=== PATIENT | female | born 1965 | race Caucasian/White ===

== ENCOUNTER → 2017-12-03 11:36 | Outpatient (CLI) | payer BC, SELFPAY ==
[2017-12-03 12:58] LABS: Add Manual Diff / Slide Review NO; Basophils Percent Auto 0.5 % (0-2); Eosinophils Percent Auto 1.1 % (2-4); Hematocrit 35.8 % (36-46); Hemoglobin 12.4 g/dL (12.0-16.0); Lymphocytes Percent Auto 30.2 % (25-40); Mean Corpuscular HGB Conc 34.6 % (30-36); Mean Corpuscular Hemoglobin 35.1 PG (26-34); Mean Corpuscular Volume 101.3 fL (80-100); Monocytes Percent Auto 8.5 % (3-14); Neutrophils Absolute Auto 2500 /uL (3000-5900); Neutrophils Percent Auto 59.7 % (50-75); Platelet Count 245 X10^3/uL (150-400); Red Blood Cell Count 3.54 X10^6/uL (4.0-5.2); Red Cell Distribution Width 14.1 % (11.6-14.8); White Blood Cell Count 4.2 X10^3/uL (4.5-11.0)
== END ==
PROVIDERS: PCP Allergy & Immunology; Visit Provider Allergy & Immunology
DX: J82 Pulmonary eosinophilia, not elsewhere classified (principal)
CPT/HCPCS: 36415; 82785; 85025

== ENCOUNTER → 2017-12-15 07:47 | Outpatient (CLI) | payer BC, SELFPAY ==
--- NOTE | 2017-12-15 | DI.MG.S_ITS ---
BILATERAL DIGITAL SCREENING MAMMOGRAM 3D/2D WITH CAD: 12/15/2017 CLINICAL: Routine screening. Comparison is made to exams dated: 11/27/2016 mammogram - [facility], 10/03/2015 mammogram, and 06/19/2014 mammogram - [facility]. The tissue of both breasts is heterogeneously dense. This may lower the sensitivity of mammography. Current study was also evaluated with a Computer Aided Detection (CAD) system. No significant masses, calcifications, or other findings are seen in either breast. There has been no significant interval change. IMPRESSION: NEGATIVE There is no mammographic evidence of malignancy. A 1 year screening mammogram is recommended. This exam was interpreted at Station ID: [id number]. NOTE: For mammograms, a report in lay terms will be sent to the patient. Approximately 15% of breast malignancies will not be visualized mammographically. In the management of a palpable breast mass, a negative mammogram must not discourage biopsy of a clinically suspicious lesion. Electronically Signed By: Antonio monterroso/jean:12/15/2017 10:32:35 copy to: WINIFRED BALTAZAR letter sent: Normal Exam ACR BI-RADS Category 1: Negative [id number]
== END ==
PROVIDERS: PCP Allergy & Immunology; Visit Provider Allergy & Immunology
DX: Z12.31 Encounter for screening mammogram for malignant neoplasm of breast (principal)
CPT/HCPCS: 77063; 77067

== ENCOUNTER → 2018-01-11 07:18 | Outpatient (CLI) | payer BC, SELFPAY ==
[2018-01-11 07:29] LABS: Bacteria Urine None Seen; RBC Urine None Seen (0-5/HPF); WBC Urine None Seen (0-5/HPF)
[2018-01-11 08:11] LABS: Add Manual Diff / Slide Review NO; Basophils Percent Auto 0.7 % (0-2); Eosinophils Percent Auto 1.3 % (2-4); Lymphocytes Percent Auto 32.5 % (25-40); Mean Corpuscular HGB Conc 34.2 % (30-36); Mean Corpuscular Volume 102.3 fL (80-100); Monocytes Percent Auto 9.8 % (3-14); Neutrophils Absolute Auto 2000 /uL (3000-5900); Neutrophils Percent Auto 55.7 % (50-75); Platelet Count 239 X10^3/uL (150-400); Red Blood Cell Count 3.71 X10^6/uL (4.0-5.2); Red Cell Distribution Width 13.7 % (11.6-14.8); White Blood Cell Count 3.6 X10^3/uL (4.5-11.0)
[2018-01-11 08:33] LABS: Erythrocyte Sedimentation Rate 18 MM/HR (0-20)
[2018-01-11 08:51] LABS: Alanine Aminotransferase 44 IU/L (9-52); Albumin 4.3 g/dL (3.5-5.0); Albumin Globulin Ratio 1.3 (1.0-2.8); Alkaline Phosphatase 61 U/L (38-126); Aspartate Aminotransferase 46 IU/L (14-36); BUN Creatinine Ratio 35.7 (6-22); Bilirubin Total 0.4 mg/dL (0.2-1.3); Blood Urea Nitrogen 25 mg/dL (7-17); C-Reactive Protein Quant 0.5 mg/dL (<1.0); Calcium 9.4 mg/dL (8.4-10.2); Carbon Dioxide 29 mmol/L (22-32); Chloride 104 mmol/L (98-107); Estimated Glomerular Filt Rate > 60.0 mL/min (>60); Globulin 3.2 g/dL (1.7-4.1); Glucose 119 mg/dL (70-100); HEMOLYSIS < 15 (0-50); Potassium 4.3 mmol/L (3.4-5.1); Sodium 143 mmol/L (137-145); Total Protein 7.5 g/dL (6.3-8.2)
[2018-01-11 12:11] LABS: Appearance Urine UA CLOUDY; Bilirubin Urine UA NEGATIVE (NEGATIVE); Color Urine UA YELLOW; Glucose Urine UA NEGATIVE (Normal); Ketones Urine UA NEGATIVE (NEGATIVE); Leukocyte Esterase Urine UA NEGATIVE (NEGATIVE); Nitrite Urine UA Negative (Negative); Occult Blood Urine UA NEGATIVE (Negative); Protein Urine UA NEGATIVE (Negative); Specific Gravity Urine UA 1.015 (1.000-1.035); Urobilinogen Urine UA 0.2 E.U./dL (0.2); pH Urine UA 7.5 (4.5-8.0)
[2018-01-11 12:19] LABS: Amorphous Sediment Urine 3+; Culture Indicated Urine Cult Not Indicated
== END ==
PROVIDERS: PCP Allergy & Immunology; Visit Provider Internal Medicine Rheumatology
DX: M30.1 Polyarteritis with lung involvement [Churg-Strauss] (principal); Z79.899 Other long term (current) drug therapy
CPT/HCPCS: 36415; 80053; 81001; 85025; 85651; 86140

== ENCOUNTER 2018-02-14 10:21 | Emergency (ER) | payer OTHER, SELFPAY ==
[2018-02-14 10:25] VITALS: BP 107/68; PULSE 85; RESP 13; TEMP 36.8; O2SAT 98
[2018-02-14] MEDS: DIPHTH,PERTUSS(ACELL),TET VAC 0.5 ML SYRINGE IM (11:10)
--- NOTE | 2018-02-14 11:48 | DI.RAD.S_ITS ---
PROCEDURE: XR ANKLE RT MIN 3V INDICATIONS: dog bite, foreign body, bony injury? TECHNIQUE: 3 views of the ankle were acquired. COMPARISON: None. FINDINGS: Bones: No fractures or dislocations. Ankle mortise is normally aligned. No suspicious bony lesions. The talar dome demonstrates no davon abnormality. Soft tissues: Soft tissue gas is seen at the site of penetrating injury. No radiopaque or bodies are seen. IMPRESSION: No radiopaque foreign bodies are seen. Soft tissue gas is seen at the site of penetrating injury. No focal bony abnormality is seen. If there is strong suspicion for developing osteomyelitis, please consider a dedicated MRI with contrast for further evaluation (assuming that there is no contraindication to MRI). Dictated by: Butch Cheema M.D. on 02/14/2018 at 11:37 Approved by: Butch Cheema M.D. on 02/14/2018 at 11:38
[2018-02-14 12:22] VITALS: BP 103/55; PULSE 76; RESP 14; TEMP 36.4; O2SAT 96
--- NOTE | 2018-02-14 12:49 | ED.ANIMALBIT ---
HPI - Animal Bite General Chief Complaint: Animal Bite Stated Complaint: rt leg dog bite Time Seen by Provider: 02/14/18 10:28 Source: patient Mode of arrival: ambulatory Limitations: no limitations History of Present Illness HPI narrative: 52-year-old female presents to the emergency department for evaluation of a dog bite on her right anterior miller just prior to arrival. She was attempting to get her dog, whom is fully immunized, into her car when it became irritated and nipped her. She has 2 puncture wounds on her anterior miller. Tetanus will need to be updated. complaint: animal bite Onset (ago): hour(s) Animal: dog Description of animal: household pet Mechanism: bite Right: lower leg Pain description: sharp Related Data Home Medications Medication Instructions Recorded Confirmed budesonide 0.5 mg INH DIRECTED #0 ea 04/04/16 02/14/18 fenofibric acid (choline) 135 mg PO QPM #0 cap 04/04/16 02/14/18 [Trilipix] metoprolol succinate [Toprol XL] 12.5 mg PO QDAY #0 ter 04/04/16 02/14/18 montelukast [Singulair] 10 mg PO QPM #0 tab 04/04/16 02/14/18 ramipril [Altace] 2.5 mg PO QPM #0 04/04/16 02/14/18 multivitamin [Multiple Vitamins] 2 tab PO QDAY #0 05/26/16 02/14/18 rosuvastatin [Crestor] 5 mg PO QPM #0 04/12/17 02/14/18 Nebulizer: Portable Unit 1 dev MISCELLANEOUS DIRECTED 02/14/18 02/14/18 albuterol sulfate [ProAir HFA] 1 puff INHALATION Q4-6H PRN 02/14/18 02/14/18 azathioprine 150 mg PO QAM 02/14/18 02/14/18 cetirizine [Zyrtec] 10 mg PO DAILY 02/14/18 02/14/18 cholecalciferol (vitamin D3) 2,000 unit PO DAILY 02/14/18 02/14/18 [Vitamin D3] ipratropium-albuterol 1 dose INHALATION DIRECTED 02/14/18 02/14/18 mepolizumab [Nucala] 1 dose SUB-Q DIRECTED 02/14/18 02/14/18 mupirocin 1 applic TOPICAL DIRECTED 02/14/18 02/14/18 Previous Rx's Medication Instructions Recorded fluticasone-salmeterol [Advair 1 puff INH BID #28 dose 07/31/16 Diskus] escitalopram 10 mg tablet 10 mg PO QDAY #90 tab 12/30/17 amoxicillin-pot clavulanate 1 tab PO BID #20 tab 02/14/18 [Augmentin] ibuprofen 600 mg PO TID-QID PRN #20 tab 02/14/18 Allergies Allergy/AdvReac Type Severity Reaction Status Date / Time Sulfa (Sulfonamide Allergy Unknown Unverified 10/13/17 12:38 Antibiotics) [SULFA (SULFONAMIDE ANTIBIOTICS)] Review of Systems Review of Systems All systems reviewed & are unremarkable except as noted in HPI and below Constitutional Denies chills, Denies fever(s), Denies lethargy and Denies weakness Eyes Denies change in vision, Denies eye discharge, Denies irritation and Denies loss of vision ENT Ears, Nose, Mouth, and Throat: Denies change in voice, Denies neck pain and Denies sore throat Cardiovascular Denies chest pain, Denies irregular heart rhythm, Denies lightheadedness, Denies palpitations, Denies dyspnea, Denies dyspnea on exertion and Denies orthopnea Respiratory Denies cough, Denies dyspnea, Denies dyspnea on exertion and Denies wheezing Gastrointestinal Gastrointestinal: Denies abdominal pain, Denies change in bowel habits, Denies diarrhea, Denies nausea and Denies vomiting Genitourinary Denies hematuria, Denies flank pain, Denies urinary incontinence and Denies urinary urgency Musculoskeletal Denies neck pain Integumentary/Breasts Denies pruritus, Denies erythema, Denies rash and Reports wounds Neurologic Denies confusion, Denies loss of vision and Denies weakness Psychiatric Denies anxiety, Denies confusion, Denies depression, Denies homicidal ideation and Denies suicidal ideation Endocrine Denies palpitations Hematologic/Lymphatic Denies easy bruising Allergic/Immunologic Denies wheezing PFSH Surgical History Status post delivery Exam Narrative Exam Narrative: GEN: AOx3 and in mild distress EYES: Pupils are equal, round, and reactive to light and accommodation. Extraoccular muscles are intact bilaterally. There is no subconjunctival hemorrhage or exudate. CHEST: Lungs are clear to auscultation bilaterally and free of wheezes, rales, or rhonchi. Heart rate is regular rhythm, there are no murmurs, clicks, rubs, or gallops. There is no chest wall tenderness. ABD: Abdomen is soft and nontender. There is no guarding or rebound. Bowel sounds are normal in all 4 quadrants. There is no mass or organomegaly. EXT: 2 small puncture wounds anterior miller without active bleeding. There is some soft tissue tenderness consistent with contusion or Full painless ROM of all extremities with no loss of sensation or strength. SKIN: Warm, pink, and dry. No erythema or rash Initial Vital Signs Initial Vital Signs: Vital Signs Temperature 98.2 F 02/14/18 10:25 Pulse Rate 85 02/14/18 10:25 Respiratory Rate 13 02/14/18 10:25 Blood Pressure 107/68 02/14/18 10:25 Pulse Oximetry 98 02/14/18 10:25 Course Orders Ordered: ED Orders 02/14/18 11:48 XR ankle RT min 3V Stat Vital Signs - 8 hr 02/14/18 12:22 Temperature 97.6 F Pulse Rate 76 Respiratory Rate 14 Blood Pressure [Left Arm] 103/55 L Pulse Oximetry 96 MDM - Animal Bite Differential Diagnosis Differential diagnosis: Likely bite by animal Imaging Data Ankle Xray: Attestation: I personally reviewed and interpreted this imaging study as follows: My impression: NAP Radiologist's impression: PROCEDURE: XR ANKLE RT MIN 3V INDICATIONS: dog bite, foreign body, bony injury? TECHNIQUE: 3 views of the ankle were acquired. COMPARISON: None. FINDINGS: Bones: No fractures or dislocations. Ankle mortise is normally aligned. No suspicious bony lesions. The talar dome demonstrates no davon abnormality. Soft tissues: Soft tissue gas is seen at the site of penetrating injury. No radiopaque or bodies are seen. IMPRESSION: No radiopaque foreign bodies are seen. Soft tissue gas is seen at the site of penetrating injury. No focal bony abnormality is seen. If there is strong suspicion for developing osteomyelitis, please consider a dedicated MRI with contrast for further evaluation (assuming that there is no contraindication to MRI). Dictated by: Butch Cheema M.D. on 02/14/2018 at 11:37 Approved by: Butch Cheema M.D. on 02/14/2018 at 11:38 Discharge Plan Departure Patient Disposition: Home, Self-Care Clinical Impression: Dog bite Discharge Date/Time: 02/14/18 13:29 Interventions: ED Discharge Assessment Last Done: 02/14/18 13:27 Instructions: DI for Animal Bites Activity Restrictions/Additional Instructions: *You have been diagnosed with [dog bite ] *What to do: *Take medications as directed: Your prescription has been electronically transmitted to the [facility] at your request *Follow up with your primary care provider in 2-3 days, call for an appointment. Let them know you were seen in the Emergency Department and that we ask that you be seen in follow up *Return to ER if you should have any new, worsening or concerning symptoms Prescriptions: New amoxicillin-pot clavulanate [Augmentin] 875-125 mg tablet 1 tab PO BID Qty: 20 RF: 0 ibuprofen 600 mg tablet 600 mg PO TID-QID PRN (Reason: pain) Qty: 20 RF: 0 No Action ramipril [Altace] 2.5 MG capsule 2.5 mg PO QPM Qty: 0 RF: 0 metoprolol succinate [Toprol XL] 25 MG tablet extended release 24 hr 12.5 mg PO QDAY Qty: 0 RF: 0 fenofibric acid (choline) [Trilipix] 135 MG capsule,delayed release(DR/EC) 135 mg PO QPM Qty: 0 RF: 0 montelukast [Singulair] 10 MG tablet 10 mg PO QPM Qty: 0 RF: 0 budesonide 0.5 MG/2 ML suspension for nebulization 0.5 mg INH DIRECTED Qty: 0 RF: 0 multivitamin [Multiple Vitamins] 1 EACH tablet 2 tab PO QDAY Qty: 0 RF: 0 fluticasone-salmeterol [Advair Diskus] 500 MCG/50 MCG blister with device 1 puff INH BID Qty: 28 RF: 0 rosuvastatin [Crestor] 10 MG tablet 5 mg PO QPM Qty: 0 RF: 0 escitalopram oxalate [Lexapro] 10 mg tablet 10 mg PO QDAY Qty: 90 RF: 0 azathioprine 50 mg tablet 150 mg PO QAM RF: 0 albuterol sulfate [ProAir HFA] 90 mcg/actuation HFA aerosol inhaler 1 puff Inhalation Q4-6H PRN (Reason: Shortness Of Breath) RF: 0 mepolizumab [Nucala] 100 mg recon soln 1 dose Sub-Q DIRECTED RF: 0 ipratropium-albuterol 0.5 mg-3 mg(2.5 mg base)/3 mL Solution For Nebulization 1 dose Inhalation DIRECTED RF: 0 cetirizine [Zyrtec] 10 mg Tablet 10 mg PO DAILY RF: 0 mupirocin 2 % Ointment 1 applic Topical DIRECTED RF: 0 cholecalciferol (vitamin D3) [Vitamin D3] 2,000 unit Tablet 2,000 unit PO DAILY RF: 0 Nebulizer: Portable Unit 1 dev miscellaneous DIRECTED RF: 0
--- NOTE | 2018-02-14 13:25 | PC.NURSE ---
dressing applied to r lower leg/ cleaned with soap and water. telfa/ kerlex and coban extra dressings given
== END 2018-02-14 13:29 | disposition home or self-care (01) ==
PROVIDERS: Emergency Provider Emergency Medicine; PCP Family Medicine
DX: S81.851A Open bite, right lower leg, initial encounter (principal); W54.0XXA Bitten by dog, initial encounter
CPT/HCPCS: 73610; 90471; 90715; 99283

== ENCOUNTER → 2018-02-23 07:18 | Outpatient (CLI) | payer OTHER, SELFPAY ==
[2018-02-23 08:50] LABS: Alanine Aminotransferase 35 IU/L (9-52); Albumin 4.5 g/dL (3.5-5.0); Albumin Globulin Ratio 1.4 (1.0-2.8); Alkaline Phosphatase 75 U/L (38-126); Aspartate Aminotransferase 37 IU/L (14-36); BUN Creatinine Ratio 31.4 (6-22); Bilirubin Total 0.3 mg/dL (0.2-1.3); Blood Urea Nitrogen 22 mg/dL (7-17); Calcium 9.9 mg/dL (8.4-10.2); Carbon Dioxide 25 mmol/L (22-32); Chloride 103 mmol/L (98-107); Estimated Glomerular Filt Rate > 60.0 mL/min (>60); Globulin 3.3 g/dL (1.7-4.1); Glucose 125 mg/dL (70-100); HEMOLYSIS < 15 (0-50); Potassium 4.9 mmol/L (3.4-5.1); Sodium 142 mmol/L (137-145); Total Protein 7.8 g/dL (6.3-8.2)
[2018-02-23 08:52] LABS: Add Manual Diff / Slide Review NO; Basophils Percent Auto 0.6 % (0-2); Eosinophils Percent Auto 1.6 % (2-4); Hematocrit 38.5 % (36-46); Hemoglobin 13.3 g/dL (12.0-16.0); Lymphocytes Percent Auto 29.3 % (25-40); Mean Corpuscular HGB Conc 34.4 % (30-36); Mean Corpuscular Hemoglobin 34.5 PG (26-34); Mean Corpuscular Volume 100.3 fL (80-100); Neutrophils Absolute Auto 3400 /uL (3000-5900); Neutrophils Percent Auto 59.5 % (50-75); Platelet Count 313 X10^3/uL (150-400); Red Blood Cell Count 3.84 X10^6/uL (4.0-5.2); Red Cell Distribution Width 13.7 % (11.6-14.8); White Blood Cell Count 5.7 X10^3/uL (4.5-11.0)
== END ==
PROVIDERS: PCP Family Medicine; Visit Provider Internal Medicine Rheumatology
DX: M30.1 Polyarteritis with lung involvement [Churg-Strauss] (principal); Z79.899 Other long term (current) drug therapy
CPT/HCPCS: 36415; 80053; 85025